=== PATIENT | female | born 1955 | race Caucasian/White ===

== ENCOUNTER 2024-04-23 08:02 | Inpatient (IN) | payer MEDICARE, OTHER ==
[2024-04-23] VITALS (7 sets, daily range): BP systolic 112–135; BP diastolic 59–69; PULSE 72–94; RESP 12–92; TEMP 97.7–98; O2SAT 15–95
[~2024-04-23] VITALS: Ht 165.1 cm; Wt 92.3 kg
[2024-04-23] MEDS: MAGNESIUM SULFATE 1GM/100ML 100 ML IV ONE ×2 (08:30→16:34)
--- NOTE | 2024-04-23 09:17 | DVH ---
CHEST RADIOGRAPH Indication:sob Technique: Single frontal view of the chest was obtained COMPARISON: None FINDINGS: Lines and Tubes: Left chest wall pacemaker Lungs: Congestion Pleura: No effusion. No pneumothorax. Cardiomediastinal contours: Unremarkable Bones: Unremarkable IMPRESSION: Congestion, mild
--- NOTE | 2024-04-23 09:30 | ED.PDOC ---
SOB-HPI HPI Comments 69-year-old female with a history of CHF, asthma, pacemaker sent here today from nearby nursing facility with complaint degree of breath, wheezing, productive cough that worsened in the last two days. Patient received three doses of her nebulizer treatments overnight and a dose of Lasix just prior to medic arrival to the nursing facility. Patient denies any chest pain at any time. No fevers. Patient was requesting steroids and breathing treatments. No other complaints. 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 Family History Family History: Reviewed,noncontributory to illness, Unknown Social History Smoker: Non-Smoker Alcohol: Denies ETOH Use Drugs: Denies Drug Use Lives In: [facility] Respiratory: reports: cough, SOB at rest Physical Exam General Appearance: No Apparent Distress, Normal HEENT: Normal ENT Inspection, Pharynx Normal, TMs Normal Neck: Full Range of Motion, Non-Tender, Normal, Normal Inspection Respiratory: Chest Non-Tender, Other (Mild respiratory distress, inspiratory and expiratory wheezing, scattered rhonchi, productive cough during exam) Cardiovascular: No Edema, No Murmur, No Gallop, Normal Peripheral Pulses, Tachycardia (110s heart rate) Breast Exam: Deferred Gastrointestinal: No Organomegaly, Non Tender, No Pulsatile Mass, Normal Bowel Sounds, Soft Genitalia: Deferred Pelvic: Deferred Rectal: Deferred Extremities: No calf tenderness, Normal capillary refill, Normal inspection, Normal range of motion, Non-tender, Pedal edema (1+ bilaterally) Musculoskeletal : Apperance: Normal Neurologic: Alert, 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 Was a procedure done? Was a procedure done?: No Differential Dx Differential Diagnosis: Asthma, Bronchitis, CHF, COPD, Pneumonia, Pneumothorax, Pulmonary Embolism, URI X-Ray, Labs, Meds, VS Vital Signs Date Time Temp Pulse Resp B/P (MAP) Pulse Ox O2 Delivery O2 Flow Rate FiO2 04/23/24 15:27 18 91 Nasal Cannula* 4 36 04/23/24 15:27 91 Nasal Cannula* 4 36 04/23/24 12:00 81 16 102/70 (81) 04/23/24 10:34 87 16 143/81 (101) 92 04/23/24 10:17 69 04/23/24 10:03 94 Nasal Cannula* 4 36 04/23/24 10:03 16 94 Nasal Cannula* 4 36 04/23/24 08:39 72 22 95 Nasal Cannula* 4 36 04/23/24 08:38 72 22 130/70 (90) 95 04/23/24 08:12 98.4 80 22 122/74 (90) 97 98.4 04/23/24 08:12 69 04/23/24 08:12 98.4 80 22 122/74 (90) 97 Lab Test 04/23/24 09:28 Range/Units White Blood Count 6.0 4.4-10.8 10^3/uL Red Blood Count 4.63 4.0-5.20 10^6/uL Hemoglobin 13.8 12.2-16.2 g/dL Hematocrit 42.1 36.0-46.0 % Mean Corpuscular Volume 91.1 80.0-100.0 fL Mean Corpuscular Hemoglobin 29.9 28.0-32.0 pg Mean Corpuscular Hemoglobin Concent 32.9 32.0-36.0 g/dL Red Cell Distribution Width 13.0 11.8-14.3 % Platelet Count 81 L 140-450 10^3/uL Mean Platelet Volume 9.6 6.9-10.8 fL Neutrophils (%) (Auto) 60.5 37.0-80.0 % Lymphocytes (%) (Auto) 20.2 10.0-50.0 % Monocytes (%) (Auto) 7.3 0.0-12.0 % Eosinophils (%) (Auto) 11.0 H 0.0-7.0 % Basophils (%) (Auto) 1.0 0.0-2.0 % Neutrophils # (Auto) 3.6 1.6-8.6 10 ^3/uL Lymphocytes # (Auto) 1.2 0.4-5.4 10 ^3/uL Monocytes # (Auto) 0.4 0-1.3 10 ^3/uL Eosinophils # (Auto) 0.7 0-0.8 10 ^3/uL Basophils # (Auto) 0.1 0-0.2 10 ^3/uL Nucleated Red Blood Cells 0.1 % Sodium Level 141 136-145 mmol/L Potassium Level 3.9 3.5-5.1 mmol/L Chloride Level 104 98-107 mmol/L Carbon Dioxide Level 31 20-31 mmol/L Anion Gap 6 5-15 Blood Urea Nitrogen 16 9-23 mg/dL Creatinine 0.98 0.550-1.02 mg/dL Glomerular Filtration Rate Calc 62 >90 mL/min BUN/Creatinine Ratio 16.3 10.0-20.0 Serum Glucose 97 74-106 mg/dL Calcium Level 10.1 8.7-10.4 mg/dL Total Bilirubin 0.6 0.2-1.0 mg/dL Aspartate Amino Transferase (AST) 15 13-40 U/L Alanine Aminotransferase (ALT) < 9 7-40 U/L Alkaline Phosphatase 76 46-116 U/L B-Type Natriuretic Peptide 25.61 0-100 pg/mL Total Protein 7.3 5.7-8.2 g/dL Albumin 4.5 3.2-4.8 g/dL Current Medications Medications (Trade) Dose Ordered Sig/Becca Route Start Time Stop Time Status Last Admin Methylprednisolone Sodium Succinate (Solu Medrol) 125 mg ONCE ONCE IV 04/23/24 08:30 04/23/24 08:41 DC 04/23/24 09:48 Ipratropium [place] (Atrovent Medneb) 1 mg ONCE ONCE N 04/23/24 08:30 04/23/24 08:41 DC 04/23/24 10:03 Albuterol (Ventolin Medneb) 20 mg ONCE ONCE N 04/23/24 08:30 04/23/24 08:41 DC 04/23/24 10:03 Albuterol (Ventolin Medneb) 20 mg ONCE ONCE [facility] 04/23/24 15:00 04/23/24 15:01 DC 04/23/24 15:27 Chest x-ray with evidence of pulmonary vascular congestion, no focal consolidation or infiltrate, no pneumothorax, this is my interpretation. FINDINGS: Lines and Tubes: Left chest wall pacemaker Lungs: Congestion Pleura: No effusion. No pneumothorax. Cardiomediastinal contours: Unremarkable Bones: Unremarkable IMPRESSION: Congestion, mild X-Ray, Labs, Meds, VS Comment 69-year-old female presented today with a presentation consistent with asthma exacerbation with components of volume overload likely secondary to CHF history. Patient was given duo neb treatments and steroids and magnesium with limited improvement in her symptoms. Patient was not given Lasix as she just received a dose from her nursing facility just prior to arrival to the ER. Labs overall reassuring without evidence of significant electrolyte abnormalities, renal dysfunction, nor leukocytosis suggest an infection. BNP normal. Chest x-ray with evidence of pulmonary vascular congestion but no evidence of pneumonia or pneumothorax. Patient to be admitted for further asthma exacerbation management and diuresis. Patient is in agreement with the plan. Time of 1ST Reevaluation: 10:02 Reevaluation 1ST: mild improve, still sob Patient Education/Counseling: Diagnosis, Treatment Family Education/Counseling: No Family Present Departure 1 Departure Time of Disposition: 15:56 Impression: Primary Impression: Asthma exacerbation Additional Impressions: CHF exacerbation History of asthma History of CHF (congestive heart failure) Pacemaker Disposition: ADMITTED INPATIENT Admit to: [facility] Condition: Stable Critical Care Note Critical Care Time?: Yes (35 min-critical care time only) Stability Stability form required: No Heart Score Heart Score: Heart Score Response (Comments) Value History N/A 0 EKG N/A 0 Age N/A 0 Risk Factors N/A 0 Troponin N/A 0 Total 0 JORDON WOODWARD MD Apr 23, 2024 09:30
[2024-04-23 09:45] LABS: Basophils # (auto) 0.1 10 ^3/uL (0-0.2); Eosinophils # (auto) 0.7 10 ^3/uL (0-0.8); Hematocrit 42.1 % (36.0-46.0); Hemoglobin 13.8 g/dL (12.2-16.2); Lymphocytes # (auto) 1.2 10 ^3/uL (0.4-5.4); Lymphocytes % (auto) 20.2 % (10.0-50.0); Mean Corpuscular Hemoglobin 29.9 pg (28.0-32.0); Mean Corpuscular Hgb Conc. 32.9 g/dL (32.0-36.0); Mean Corpuscular Volume 91.1 fL (80.0-100.0); Monocytes # (auto) 0.4 10 ^3/uL (0-1.3); Monocytes % (auto) 7.3 % (0.0-12.0); Neutrophils # (auto) 3.6 10 ^3/uL (1.6-8.6); Neutrophils % (auto) 60.5 % (37.0-80.0); Nucleated Red Blood Cells % 0.1 %; Platelet Count (auto) 81 10^3/uL (140-450); Red Blood Cells 4.63 10^6/uL (4.0-5.20)
[2024-04-23] MEDS: methylPREDNISolone SOD SUCC 125 MG/2 ML VL IV ONE (09:48)
[2024-04-23] MEDS: ALBUTEROL SULF 2.5 MG/0.5ML(0.5%) NEB SOLN HHN ONE ×2 (10:03→15:27)
[2024-04-23] MEDS: IPRATROPIUM BROM 0.5 MG/2.5ML INH SOL HHN ONE (10:03)
[2024-04-23 10:14] LABS: Albumin 4.5 g/dL (3.2-4.8); Alkaline Phosphatase 76 U/L (46-116); Anion Gap 6 (5-15); Aspartate Aminotransferase 15 U/L (13-40); BUN/Creatinine Ratio 16.3 (10.0-20.0); Bilirubin, Total 0.6 mg/dL (0.2-1.0); Blood Urea Nitrogen 16 mg/dL (9-23); Calcium 10.1 mg/dL (8.7-10.4); Carbon Dioxide 31 mmol/L (20-31); Chloride 104 mmol/L (98-107); Glucose 97 mg/dL (74-106); Potassium 3.9 mmol/L (3.5-5.1); Sodium 141 mmol/L (136-145); Total Protein 7.3 g/dL (5.7-8.2)
[2024-04-23 10:16] LABS: Alanine Aminotransferase < 9 U/L (7-40)
[2024-04-23] MEDS ORDERED: HYDR25TA5 PO (15:38)
[2024-04-23] MEDS ORDERED: HYDR25TA87 PO (15:38)
[2024-04-23] MEDS ORDERED: QUET1TAB11 PO (15:38)
[2024-04-23] MEDS ORDERED: MONT-8 PO (15:38)
[2024-04-23] MEDS ORDERED: HYDROcodone-ACET 5/325MG TAB PO PRN (15:45)
[2024-04-23] MEDS ORDERED: ONDANSETRON HCL 4 MG/2 ML VIAL IV PRN (15:45)
[2024-04-23] MEDS ORDERED: DOCUSATE SOD 100 MG CAP PO PRN (15:45)
--- NOTE | 2024-04-23 15:48 | DVHHP2 ---
History of Present Illness Reason for Visit: Shortness of breath History of Present Illness Maryann Melgar is a 69-year-old female with past medical history of asthma, CHF, hypertension, and recent pacemaker, who comes in with complaints of shortness of breath. Patient states that this morning it was becoming increasingly difficulty for her to breath, to the point that she was gasping, causing her to come to the hospital. She states she uses home oxygen at 3L/min. She is currently on 4L/min with O2 sats 88-91%, with audible wheezing and tripoding. Cardiovascular: CHF, HTN, Other (Pacemaker) Pulmonary: Asthma (on home oxygen 3L) Past Surgical History: Appendectomy, (x 1) Family History: None Smoke: Quit (2 days ago) ALCOHOL: none Drugs: None Lives: [facility] Domestic Violence: Neg Review of Systems Constitutional: No: Fever, Chills, Sweats, Weakness, Malaise, Other Eyes: No: Pain, Vision change, Conjunctivae inflammation, Eyelid inflammation, Other, Redness ENT: No: Ear pain, Ear discharge, Nose pain, Nose discharge, Nose congestion, Mouth pain, Mouth swelling, Throat pain, Throat swelling, Other Respiratory: Cough, Shortness of breath, SOB with excertion, Wheezing; No: Dry, Hemoptysis, Pleuritic Pain, Sputum, Wheezing, Other Cardiovascular: No: Chest Pain, Palpitations, Orthopnea, Paroxysmal Noc. Dyspnea, Edema, Lt Headedness, Other Gastrointestinal: No: Nausea, Vomiting, Abdominal Pain, Diarrhea, Constipation, Melena, Hematochezia, Other Genitourinary: No Dysuria, No Frequency, No Incontinence, No Hematuria, No Retention, No Other Musculoskeletal: No: other, neck pain, shoulder pain, arm pain, back pain, hand pain, leg pain, foot pain Skin: No: Rash, Lesions, Jaundice, Bruising, Other Neurological: No: Weakness, Numbness, Incoordination, Change in speech, Confusion, Seizures, Other Allergies: Coded Allergies: NO KNOWN ALLERGIES (Unverified , 04/23/24) Exam Vital Signs Vital Signs Date Time Temp Pulse Resp B/P (MAP) Pulse Ox O2 Delivery O2 Flow Rate FiO2 04/23/24 15:27 18 91 Nasal Cannula* 4 36 04/23/24 12:00 81 102/70 (81) 04/23/24 08:12 98.4 98.4 General Appearance: Alert, Oriented X3, moderate distress HEENT: Atraumatic, PERRLA, Mucous membr. moist/pink Respiratory: Other (Bilateral wheezing) Cardiovascular: Regular rate, Normal S1, Normal S2 Abdominal: Normal bowel sounds Extremities: No clubbing, No cyanosis, No edema Skin: No rashes, No breakdown, No significant lesion Neuro: Normal gait, Normal speech, Strength at 5/5 X4 ext Psych/Mental Status: Mental status NL, Mood NL Labs/Xrays Labs Test 04/23/24 09:28 Range/Units White Blood Count 6.0 4.4-10.8 10^3/uL Red Blood Count 4.63 4.0-5.20 10^6/uL Hemoglobin 13.8 12.2-16.2 g/dL Hematocrit 42.1 36.0-46.0 % Mean Corpuscular Volume 91.1 80.0-100.0 fL Mean Corpuscular Hemoglobin 29.9 28.0-32.0 pg Mean Corpuscular Hemoglobin Concent 32.9 32.0-36.0 g/dL Red Cell Distribution Width 13.0 11.8-14.3 % Platelet Count 81 L 140-450 10^3/uL Mean Platelet Volume 9.6 6.9-10.8 fL Neutrophils (%) (Auto) 60.5 37.0-80.0 % Lymphocytes (%) (Auto) 20.2 10.0-50.0 % Monocytes (%) (Auto) 7.3 0.0-12.0 % Eosinophils (%) (Auto) 11.0 H 0.0-7.0 % Basophils (%) (Auto) 1.0 0.0-2.0 % Neutrophils # (Auto) 3.6 1.6-8.6 10 ^3/uL Lymphocytes # (Auto) 1.2 0.4-5.4 10 ^3/uL Monocytes # (Auto) 0.4 0-1.3 10 ^3/uL Eosinophils # (Auto) 0.7 0-0.8 10 ^3/uL Basophils # (Auto) 0.1 0-0.2 10 ^3/uL Nucleated Red Blood Cells 0.1 % Sodium Level 141 136-145 mmol/L Potassium Level 3.9 3.5-5.1 mmol/L Chloride Level 104 98-107 mmol/L Carbon Dioxide Level 31 20-31 mmol/L Anion Gap 6 5-15 Blood Urea Nitrogen 16 9-23 mg/dL Creatinine 0.98 0.550-1.02 mg/dL Glomerular Filtration Rate Calc 62 >90 mL/min BUN/Creatinine Ratio 16.3 10.0-20.0 Serum Glucose 97 74-106 mg/dL Calcium Level 10.1 8.7-10.4 mg/dL Total Bilirubin 0.6 0.2-1.0 mg/dL Aspartate Amino Transferase (AST) 15 13-40 U/L Alanine Aminotransferase (ALT) < 9 7-40 U/L Alkaline Phosphatase 76 46-116 U/L B-Type Natriuretic Peptide 25.61 0-100 pg/mL Total Protein 7.3 5.7-8.2 g/dL Albumin 4.5 3.2-4.8 g/dL CHEST RADIOGRAPH FINDINGS: Lines and Tubes: Left chest wall pacemaker Lungs: Congestion Pleura: No effusion. No pneumothorax. Cardiomediastinal contours: Unremarkable Bones: Unremarkable IMPRESSION: Congestion, mild Assessment/Plan Assessment/Plan Assessment: CHF exacerbation, Asthma exacerbation, Hypertension, Thrombocytopenia, Plan: Admit to Med-Surg, Breathing treatments, IV steroids, Supplemental oxygen, Home medications reconciled, Plan discussed with: Patient My Orders Orders - RADHA SABA DIRECTOR ATHLETIC Procedure Category Date Status Time Urinalysis LAB 04/23/24 Logged 15:26 Magnesium Sulfate PHA 04/23/24 Logged 1gm/100ml 15:45 Admit ADMIT 04/23/24 Transmitted 15:32 Code Status CODE 04/23/24 Transmitted 15:32 2 Gm Sodium Diet DIET 04/23/24 Transmitted Dinner Sodium Chloride Lock PHA 04/23/24 Transmitted (Saline Lock Ns) 22:00 Hydrocodone-Acet PHA 04/23/24 Transmitted 5/325mg Tab (Ivins 15:45 Ondansetron Hcl PHA 04/23/24 Transmitted (Zofran) 15:45 Docusate Sodium PHA 04/23/24 Transmitted Capsule (Colace 15:45 Complete Blood Count LAB 04/24/24 Verified 04:00 Comprehensive LAB 04/24/24 Verified Metabolic Panel 04:00 Condition: Serious LOULOU 04/23/24 Transmitted 15:32 Acetaminophen Tablet PHA 04/23/24 Transmitted (Tylenol Tablet) 15:45 Methylprednisolone PHA 04/23/24 Transmitted Sod Succ (Solu Medrol 22:00 Ipratropium Medneb PHA 04/23/24 Transmitted (Atrovent Medneb) 15:45 Albuterol Medneb PHA 04/23/24 Transmitted (Ventolin Medneb) 15:45 Hydrochlorothiazide PHA 04/24/24 Verified Tablet (Hydrochlorot 10:00 Hydralazine Hcl PHA 04/24/24 Verified Tablet (Apresoline 10:00 Montelukast Tablet PHA 04/24/24 Verified (Singulair Tablet) 10:00 Quetiapine Fumarate PHA 04/23/24 Verified Tablet (Seroquel Tab 22:00 Date of Service: Apr 23, 2024 Billing Provider: RADHA SABA Common Visit Codes: [id number] INP/OBS CARE (MOD) RADHA SABA Apr 23, 2024 15:48
[2024-04-23 17:33] LABS: Urine Bacteria None Seen /hpf (None Seen)
[2024-04-23 17:47] LABS: Urine Blood TRACE /uL (Negative); Urine Clarity Clear (Clear); Urine Color Colorless (Yellow); Urine Hyaline Cast FEW /lpf (0 - 2); Urine Protein, UAD Negative (Negative); Urine Urobilinogen Normal (Negative); Urine WBC <1 /hpf (0 - 5)
[2024-04-23] MEDS: ALBUTEROL SULF 2.5 MG/0.5ML(0.5%) NEB SOLN NEB PRN (18:59)
[2024-04-23] MEDS: IPRATROPIUM BROM 0.5 MG/2.5ML INH SOL NEB PRN (19:00)
[2024-04-23] MEDS: guaiFENesin-DM 100/10mg/5ml SYR PO PRN (19:51)
[2024-04-23] MEDS: HYDROcodone-ACET 10/325MG TAB PO PRN (20:06)
[2024-04-23] MEDS ORDERED: SERT25TA28 PO (20:56)
[2024-04-23] MEDS ORDERED: ALPR0.25 PO (20:56)
--- NOTE | 2024-04-23 21:06 | ECG ---
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
[2024-04-23] MEDS: SODIUM CHLOR 0.9% PF (SALINE LOCK) 10ML VIAL/SYR IV SCH (21:45)
[2024-04-23] MEDS: QUEtiapine FUMARATE 25 MG TAB PO SCH (21:45)
[2024-04-23] MEDS: methylPREDNISolone SOD SUCC 40 MG/ML VL IV SCH (21:45)
[2024-04-23] MEDS: ACETAMINOPHEN 325 MG TAB PO PRN (21:45)
[2024-04-24] VITALS (20 sets, daily range): BP systolic 123–158; BP diastolic 65–77; PULSE 65–90; RESP 16–22; TEMP 97.4–98.2; O2SAT 90–98
[2024-04-24] MEDS: IPRATROPIUM BROM 0.5 MG/2.5ML INH SOL NEB SCH ×2 (07:25→18:07)
[2024-04-24] MEDS: ALBUTEROL SULF 2.5 MG/0.5ML(0.5%) NEB SOLN NEB SCH ×2 (07:26→18:07)
[2024-04-24] MEDS: hydrALAZINE HCL 25 MG TAB PO SCH (09:47)
[2024-04-24] MEDS: MONTELUKAST SODIUM 10 MG TAB PO SCH (09:47)
[2024-04-24] MEDS: hydroCHLOROthiazide 25 MG TAB PO SCH (09:47)
[2024-04-24 10:13] LABS: Basophils # (auto) 0 10 ^3/uL (0-0.2); Basophils % (auto) 0.1 % (0.0-2.0); Eosinophils # (auto) 0 10 ^3/uL (0-0.8); Eosinophils % (auto) 0.1 % (0.0-7.0); Hematocrit 39.3 % (36.0-46.0); Hemoglobin 13.1 g/dL (12.2-16.2); Lymphocytes # (auto) 0.5 10 ^3/uL (0.4-5.4); Lymphocytes % (auto) 3.9 % (10.0-50.0); Mean Corpuscular Hemoglobin 29.7 pg (28.0-32.0); Mean Corpuscular Hgb Conc. 33.3 g/dL (32.0-36.0); Mean Corpuscular Volume 89.1 fL (80.0-100.0); Monocytes # (auto) 0.6 10 ^3/uL (0-1.3); Monocytes % (auto) 4.7 % (0.0-12.0); Neutrophils # (auto) 11.6 10 ^3/uL (1.6-8.6); Neutrophils % (auto) 91.2 % (37.0-80.0); Platelet Count (auto) 91 10^3/uL (140-450); Red Blood Cells 4.41 10^6/uL (4.0-5.20); Red Cell Distribution Width 12.6 % (11.8-14.3); White Blood Cell 12.7 10^3/uL (4.4-10.8)
[2024-04-24 10:31] LABS: Albumin 4.7 g/dL (3.2-4.8); Alkaline Phosphatase 73 U/L (46-116); Anion Gap 7 (5-15); Aspartate Aminotransferase 12 U/L (13-40); BUN/Creatinine Ratio 23.4 (10.0-20.0); Bilirubin, Total 0.6 mg/dL (0.2-1.0); Blood Urea Nitrogen 22 mg/dL (9-23); Calcium 10.6 mg/dL (8.7-10.4); Carbon Dioxide 31 mmol/L (20-31); Chloride 100 mmol/L (98-107); Glucose 144 mg/dL (74-106); Potassium 3.5 mmol/L (3.5-5.1); Sodium 138 mmol/L (136-145); Total Protein 7.5 g/dL (5.7-8.2)
[2024-04-24 10:36] LABS: Alanine Aminotransferase < 9 U/L (7-40)
--- NOTE | 2024-04-24 13:21 | DVHPN2 ---
Reviewed: Care Plan, H&P, Labs, Medications, Previous Orders, Radiology Changes from previous H/P or p: No Changes Eyes: No Pain, No Vision change, No Conjunctivae inflammation, No Eyelid inflammation, No Other, No Redness ENT: No Ear pain, No Ear discharge, No Nose pain, No Nose discharge, No Nose congestion, No Mouth pain, No Mouth swelling, No Throat pain, No Throat swelling, No Other Cardiovascular: No Chest Pain, No Palpitations, No Orthopnea, No Paroxysmal Noc. Dyspnea, No Edema, No Lt Headedness, No Other Respiratory: Cough; No Dry; Shortness of breath, SOB with excertion, Wheezing; No Hemoptysis, No Pleuritic Pain, No Sputum, No Other Gastrointestinal: No Nausea, No Vomiting, No Abdominal Pain, No Diarrhea, No Constipation, No Melena, No Hematochezia, No Other Genitourinary: No Dysuria, No Frequency, No Incontinence, No Hematuria, No Retention, No Other Musculoskeletal: No other, No neck pain, No shoulder pain, No arm pain, No back pain, No hand pain, No leg pain, No foot pain Skin: No Rash, No Lesions, No Jaundice, No Bruising, No Other Objective Vitals Vital Signs Date Time Temp Pulse Resp B/P (MAP) Pulse Ox O2 Delivery O2 Flow Rate FiO2 04/24/24 11:48 78 16 96 04/24/24 11:38 Nasal Cannula 3.0 04/24/24 11:38 28 04/24/24 09:47 136/69 04/24/24 08:47 98.1 98.1 Intake/Output Intake and Output 04/24/24 07:00 Intake Total 500 ml Balance 500 ml Intake Oral 400 ml IV Total 100 ml Medications Current Medications Medications Dose Ordered Sig/Becca Route Start Time Stop Time Status Last Admin Dose Admin Sodium Chloride 10 ml Q8HR IV 04/23/24 22:00 04/24/24 05:03 10 ML Acetaminophen/ Hydrocodone Bitart 1 tab Q4HP PRN PO 04/23/24 15:45 Cancel Ondansetron HCl 4 mg Q4HP PRN IV 04/23/24 15:45 Docusate Sodium 100 mg BIDPRN PRN PO 04/23/24 15:45 Acetaminophen 650 mg Q6HP PRN PO 04/23/24 15:45 04/23/24 21:45 650 MG Methylprednisolone Sodium Succinate 40 mg BID IV 04/23/24 22:00 04/24/24 09:46 40 MG Ipratropium [place] 0.5 mg Q4HPRN PRN NEB 04/23/24 15:45 04/24/24 04:11 0.5 MG Albuterol 2.5 mg Q4HPRN PRN NEB 04/23/24 15:45 04/24/24 04:11 2.5 MG Hydrochlorothiazide 25 mg DAILY PO 04/24/24 10:00 04/24/24 09:47 25 MG Hydralazine HCl 25 mg DAILY PO 04/24/24 10:00 04/24/24 09:47 25 MG Montelukast Sodium 10 mg DAILY PO 04/24/24 10:00 04/24/24 09:47 10 MG Quetiapine Fumarate 25 mg HS PO 04/23/24 22:00 04/23/24 21:45 25 MG Guaifenesin/ Dextromethorphan 10 ml Q4HP PRN PO 04/23/24 19:15 04/23/24 20:05 10 ML Acetaminophen/ Hydrocodone Bitart 1 tab Q6HP PRN PO 04/23/24 19:15 04/24/24 04:19 1 TAB Albuterol 2.5 mg Q6HR NEB 04/24/24 06:00 04/24/24 11:38 2.5 MG Ipratropium [place] 0.5 mg Q6HR NEB 04/24/24 06:00 04/24/24 11:38 0.5 MG Laboratory Results Laboratory Tests 04/24/24 09:51 Chemistry Test 04/24/24 09:51 Albumin 4.7 g/dL (3.2-4.8) Calcium Level 10.6 mg/dL (8.7-10.4) H Total Protein 7.5 g/dL (5.7-8.2) LFT Test 04/24/24 09:51 Alanine Aminotransferase (ALT) < 9 U/L (7-40) Alkaline Phosphatase 73 U/L (46-116) Aspartate Amino Transferase (AST) 12 U/L (13-40) L Total Bilirubin 0.6 mg/dL (0.2-1.0) Urinalysis Test 04/23/24 17:00 Urine Color Colorless (Yellow) Urine Clarity Clear (Clear) Urine pH 5.0 (5.0-9.0) Urine Specific [place] 1.010 (1.001-1.035) Urine Protein Negative (Negative) Urine Ketones Negative (Negative) Urine Blood Trace /uL (Negative) H Urine Nitrite Negative (Negative) Urine Bilirubin Negative (Negative) Urine Urobilinogen Normal mg/dL (Negative) Urine Leukocyte Esterase Negative /uL (Negative) Urine RBC 1 /hpf (0 - 4) Urine WBC <1 /hpf (0 - 5) Urine Squamous Epithelial Cells Few /hpf (<5) Urine Bacteria None seen /hpf (None Seen) Urine Hyaline Casts Few /lpf (0 - 2) Urine Glucose Normal mg/dL (Normal) Labs and/or images reviewed: Labs reviewed by me, Image(s) reviewed by me Assessment/Plan Assessment/Plan Acute on chronic hypoxic respiratory failure: Oxygen by nasal cannula Use of home oxygen 4 L per minute Acute asthma exacerbation Acute on chronic CHF exacerbation Hypertension History of pacemaker seven weeks ago at [place] for symptomatic bradycardia [facility] Time spent 55 minutes Patient is full code Time spent advanced care planning 20 minutes Plan discussed with: Patient Date of Service: Apr 24, 2024 Billing Provider: FATOUMATA DELGADO MD Common Visit Codes: [id number] INP/OBS CARE(HIGH) Secondary Visit Codes: [id number] CARE PLAN 30 MINUTES FATOUMATA DELGADO MD Apr 24, 2024 13:21
[2024-04-24] MEDS: ALPRAZolam 0.5 MG TAB PO SCH (14:23)
[2024-04-25] VITALS (13 sets, daily range): BP systolic 122–140; BP diastolic 67–83; PULSE 63–91; RESP 14–20; TEMP 36.4; O2SAT 19–99
[2024-04-25] MEDS ORDERED: METH4PAK PO (09:25)
--- NOTE | 2024-04-25 09:26 | DVHPN2 ---
Reviewed: Care Plan, H&P, Labs, Medications, Previous Orders, Radiology Changes from previous H/P or p: No Changes Eyes: No Pain, No Vision change, No Conjunctivae inflammation, No Eyelid inflammation, No Other, No Redness ENT: No Ear pain, No Ear discharge, No Nose pain, No Nose discharge, No Nose congestion, No Mouth pain, No Mouth swelling, No Throat pain, No Throat swelling, No Other Cardiovascular: No Chest Pain, No Palpitations, No Orthopnea, No Paroxysmal Noc. Dyspnea, No Edema, No Lt Headedness, No Other Respiratory: Cough; No Dry; Shortness of breath, SOB with excertion, Wheezing; No Hemoptysis, No Pleuritic Pain, No Sputum, No Other Gastrointestinal: No Nausea, No Vomiting, No Abdominal Pain, No Diarrhea, No Constipation, No Melena, No Hematochezia, No Other Genitourinary: No Dysuria, No Frequency, No Incontinence, No Hematuria, No Retention, No Other Musculoskeletal: No other, No neck pain, No shoulder pain, No arm pain, No back pain, No hand pain, No leg pain, No foot pain Skin: No Rash, No Lesions, No Jaundice, No Bruising, No Other Objective Vitals Vital Signs Date Time Temp Pulse Resp B/P (MAP) Pulse Ox O2 Delivery O2 Flow Rate FiO2 04/25/24 09:04 122/67 04/25/24 08:38 97.6 66 14 99 97.6 04/25/24 07:28 Nasal Cannula* 3 32 Intake/Output Intake and Output 04/25/24 07:00 Intake Total 590 ml Output Total 500 ml Balance 90 ml Intake Oral 590 ml Output Urine Total 500 ml # Voids 3 # Bowel Movements 1 Medications Current Medications Medications Dose Ordered Sig/Becca Route Start Time Stop Time Status Last Admin Dose Admin Sodium Chloride 10 ml Q8HR IV 04/23/24 22:00 04/25/24 05:17 10 ML Acetaminophen/ Hydrocodone Bitart 1 tab Q4HP PRN PO 04/23/24 15:45 Cancel Ondansetron HCl 4 mg Q4HP PRN IV 04/23/24 15:45 Docusate Sodium 100 mg BIDPRN PRN PO 04/23/24 15:45 Acetaminophen 650 mg Q6HP PRN PO 04/23/24 15:45 04/23/24 21:45 650 MG Methylprednisolone Sodium Succinate 40 mg BID IV 04/23/24 22:00 04/25/24 09:02 40 MG Hydrochlorothiazide 25 mg DAILY PO 04/24/24 10:00 04/25/24 09:03 25 MG Hydralazine HCl 25 mg DAILY PO 04/24/24 10:00 04/25/24 09:04 25 MG Montelukast Sodium 10 mg DAILY PO 04/24/24 10:00 04/25/24 09:03 10 MG Quetiapine Fumarate 25 mg HS PO 04/23/24 22:00 04/24/24 22:02 25 MG Guaifenesin/ Dextromethorphan 10 ml Q4HP PRN PO 04/23/24 19:15 04/25/24 09:03 10 ML Acetaminophen/ Hydrocodone Bitart 1 tab Q6HP PRN PO 04/23/24 19:15 04/25/24 09:14 1 TAB Alprazolam 1 mg TID PO 04/24/24 14:00 04/25/24 05:17 1 MG Albuterol 2.5 mg Q4HR NEB 04/24/24 18:00 04/25/24 07:28 2.5 MG Ipratropium [place] 0.5 mg Q4HR NEB 04/24/24 18:00 04/25/24 07:28 0.5 MG Laboratory Results Laboratory Tests 04/24/24 09:51 Chemistry Test 04/24/24 09:51 Albumin 4.7 g/dL (3.2-4.8) Calcium Level 10.6 mg/dL (8.7-10.4) H Total Protein 7.5 g/dL (5.7-8.2) Coagulation Test 04/24/24 14:17 D-Dimer, Quantitative 1.19 mg/L FEU (0.0-0.49) H LFT Test 04/24/24 09:51 Alanine Aminotransferase (ALT) < 9 U/L (7-40) Alkaline Phosphatase 73 U/L (46-116) Aspartate Amino Transferase (AST) 12 U/L (13-40) L Total Bilirubin 0.6 mg/dL (0.2-1.0) Urinalysis Test 04/23/24 17:00 Urine Color Colorless (Yellow) Urine Clarity Clear (Clear) Urine pH 5.0 (5.0-9.0) Urine Specific [place] 1.010 (1.001-1.035) Urine Protein Negative (Negative) Urine Ketones Negative (Negative) Urine Blood Trace /uL (Negative) H Urine Nitrite Negative (Negative) Urine Bilirubin Negative (Negative) Urine Urobilinogen Normal mg/dL (Negative) Urine Leukocyte Esterase Negative /uL (Negative) Urine RBC 1 /hpf (0 - 4) Urine WBC <1 /hpf (0 - 5) Urine Squamous Epithelial Cells Few /hpf (<5) Urine Bacteria None seen /hpf (None Seen) Urine Hyaline Casts Few /lpf (0 - 2) Urine Glucose Normal mg/dL (Normal) Labs and/or images reviewed: Labs reviewed by me, Image(s) reviewed by me Assessment/Plan Assessment/Plan Acute on chronic hypoxic respiratory failure: Oxygen by nasal cannula Use of home oxygen 4 L per minute Acute asthma exacerbation Acute on chronic CHF exacerbation Hypertension History of pacemaker seven weeks ago at [place] for symptomatic bradycardia [facility] Time spent 55 minutes Patient is full code Time spent advanced care planning 20 minutes Plan discussed with: Patient My Orders Orders - FATOUMATA DELGADO MD Procedure Category Date Status Time Alprazolam Tablet PHA 04/24/24 In Process (Xanax Tablet) 14:00 Albuterol Medneb PHA 04/24/24 In Process (Ventolin Medneb) 18:00 Ipratropium Medneb PHA 04/24/24 In Process (Atrovent Medneb) 18:00 Date of Service: Apr 25, 2024 Billing Provider: FATOUMATA DELGADO MD Common Visit Codes: [id number] INP/OBS CARE(HIGH) FATOUMATA DELGADO MD Apr 25, 2024 09:26
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
== END 2024-04-25 11:32 | disposition home or self-care (01) | DRG 291 ==
LOC: EDBD 08:02 → ER 08:15 → OVERFLOW 15:32 → CENTRAL 15:38
PROVIDERS: ADMIT Nurse Practitioner Family; ATTEND Family Medicine
DX: I11.0 Hypertensive heart disease with heart failure (principal); I50.33 Acute on chronic diastolic (congestive) heart failure; J96.21 Acute and chronic respiratory failure with hypoxia; J45.901 Unspecified asthma with (acute) exacerbation; D69.6 Thrombocytopenia, unspecified; Z95.0 Presence of cardiac pacemaker; Z79.899 Other long term (current) drug therapy
CPT/HCPCS: 36415; 71045; 80053; 81001; 83880; 85025; 85379; 93005; 94640; 94644; 94645; 96374; 99291; G0378

== ENCOUNTER 2025-05-14 18:59 | Inpatient (IN) | payer MEDICARE, OTHER ==
[~2025-05-14] VITALS: Ht 162.6 cm; Wt 60.0 kg
[~2025-05-14 18:59] MED LIST: ALPR0.25 PO; HYDR25TA5 PO; HYDR25TA87 PO; METH4PAK PO; MONT-8 PO; QUET1TAB11 PO; SERT25TA28 PO
--- NOTE | 2025-05-14 19:12 | ECG ---
[facility] Test Date: 2025-05-14 Test Time: 19:00:29 Pat Name: ANTONY SCALES Department: ED Room: 0283T Gender: F Toe Sewer: ALFRED : 1955 Requested By: GUICHO PARKER Order Number: [id number] Reading MD: Joao Lane Measurements Intervals [place] Rate: 70 P: 47 MA: 203 QRS: 29 QRSD: 86 T: 242 QT: 383 QTc: 414 Interpretive Statements Sinus rhythm Abnormal R-wave progression, early transition Repol abnrm suggests ischemia, anterolateral Electronically Signed On 05-19-2025 14:50:[address] Please click the below link to view image of tracing.
--- NOTE | 2025-05-14 20:11 | DVH ---
CHEST RADIOGRAPH Indication: SOB Technique: Single frontal view of the chest was obtained Comparison: XY CHEST PORTABLE on DOS: 04/23/24 FINDINGS: Lines and Tubes: None Lungs: No focal consolidation. Mild interstitial prominence. Pleura: No effusion. No pneumothorax. Cardiomediastinal contours: Unremarkable. Left-sided approach dual lead pacemaker terminating within right atrium and right ventricle. Bones: No acute osseous abnormality. IMPRESSION: Pulmonary vascular congestion.
--- NOTE | 2025-05-14 20:17 | ED.PDOC ---
Altered Mental Status HPI Comments 70-year-old female who came to ER via EMS for altered level of consciousness. Per EMS, patient picked up at [facility]. Was seen by caregivers laying on the ground of her room. Considering possible overdose of opiates. Was given 1 mg of Narcan while EN route to the ER. Patient does have history of dementia and no further information could be taken from her at this time with care Chief Complaint: ALOC Time Seen by MD: 20:16 Reviewed Notes: Nurses Notes Allergies: Coded Allergies: NO KNOWN ALLERGIES (Unverified , 04/23/24) Home Meds Active Scripts Methylprednisolone (Medrol Dosepak) 4 Mg Rosendo, 4 MG PO UD, #21 TAB UAD Prov:FATOUMATA DELGADO MD 04/25/24 Reported Medications Diphenhydramine HCl (Ruthann-Dryl) 12.5 Mg/5 Ml Liq, 12.5 MG PO, LIQ 05/15/25 Furosemide (Lasix) 20 Mg Tb, 1 TAB PO DAILY, #90 TAB 1 Refill 05/15/25 Escitalopram Oxalate (Lexapro) 5 Mg Tab, 1 TAB PO DAILY, #30 TAB 2 Refills 05/15/25 Hydrocodone-Acetaminophen (Hydrocodone Bitartrate/AC 10-325 mg) 1 Tab Tab, 1 TAB PO, TAB 05/15/25 Sertraline Hcl (Sertraline Hcl) 25 Mg Tab, 1 TAB PO DAILY, #30 TAB 2 Refills 04/23/24 Alprazolam (Xanax) 0.25 Mg Tb, 1 TAB PO DAILY, #30 TAB 04/23/24 Hydralazine HCl (Hydralazine HCl) 25 Mg Tab, 1 TAB PO DAILY 04/23/24 Quetiapine Fumerate (QUETIAPINE FUMARATE) 25 Mg Tab, 1 TAB PO HS 04/23/24 Montelukast Sodium (MONTELUKAST SODIUM) 10 Mg Tab, 1 TAB PO DAILY 04/23/24 Hctz (Hydrochlorothiazide) 25 Mg Tab, 1 TAB PO DAILY 04/23/24 Information Source: Emergency Med Personnel Mode of Arrival: EMS Severity: Unable to Care for Self Past Medical History PAST MEDICAL HISTORY: CHF, Dementia Surgical History: Unknown DIRECTOR OF GUIDANCE History: Unknown Family History Family History: Unknown Social History Smoker: Unknown Alcohol: Unknown Drugs: Unknown Lives In: Senior Living Unable to Obtain due to: Altered Mental Status, Dementia Physical Exam General Appearance: No Apparent Distress, Normal HEENT: Normal ENT Inspection, Pharynx Normal, TMs Normal Neck: Full Range of Motion, Non-Tender, Normal, Normal Inspection Respiratory: Chest Non-Tender, Lungs Clear, No Accessory Muscle Use, No Respiratory Distress, Normal Breath Sounds Cardiovascular: No Edema, No JVD, No Murmur, No Gallop, Normal Peripheral Pulses, Regular Rate/Rhythm Breast Exam: Deferred Gastrointestinal: No Organomegaly, Non Tender, No Pulsatile Mass, Normal Bowel Sounds, Soft Genitalia: Deferred Pelvic: Deferred Rectal: Deferred Extremities: No calf tenderness, Normal capillary refill, Normal inspection, Normal range of motion, Non-tender, No pedal edema Musculoskeletal : Apperance: Normal Neurologic: Alert, auditing control clerk II-XII nml as Tested, No Motor Deficits, Normal Affect, Normal Mood, No Sensory Deficits Cerebellar Function: Normal Reflexes: Normal Skin: Dry, Normal Color, Warm Lymphatic: No Adenopathy EKG EKG : Pulse Rate (adult): 70 Cardiac Rhythm: NSR Was a procedure done? Was a procedure done?: No Differential Diagnosis (ALOC) Differential Diagnosis: Dehydration, Hypoglycemia, Encephalopathy, Hypoxemia, Drug Overdose X-Ray, Labs, Meds, VS Vital Signs Date Time Temp Pulse Resp B/P (MAP) Pulse Ox O2 Delivery O2 Flow Rate FiO2 05/14/25 20:54 97.9 75 22 95/50 (65) 99 97.9 05/14/25 20:50 75 22 99 Nasal Cannula* 4 36 05/14/25 20:18 98.5 69 72 94/61 (72) 100 98.5 05/14/25 20:16 70 05/14/25 19:08 70 05/14/25 19:04 98.0 70 14 104/63 96 98.0 Lab Test 05/14/25 21:34 05/14/25 21:07 05/14/25 19:59 Range/Units White Blood Count 7.8 4.4-10.8 10^3/uL Red Blood Count 4.09 4.0-5.20 10^6/uL Hemoglobin 12.2 12.2-16.2 g/dL Hematocrit 36.9 36.0-46.0 % Mean Corpuscular Volume 90.2 80.0-100.0 fL Mean Corpuscular Hemoglobin 29.7 28.0-32.0 pg Mean Corpuscular Hemoglobin Concent 33.0 32.0-36.0 g/dL Red Cell Distribution Width 13.8 11.8-14.3 % Platelet Count 121 L 140-450 10^3/uL Mean Platelet Volume 9.2 6.9-10.8 fL Neutrophils (%) (Auto) 76.1 37.0-80.0 % Lymphocytes (%) (Auto) 16.8 10.0-50.0 % Monocytes (%) (Auto) 6.4 0.0-12.0 % Eosinophils (%) (Auto) 0.4 0.0-7.0 % Basophils (%) (Auto) 0.3 0.0-2.0 % Neutrophils # (Auto) 6.0 1.6-8.6 10 ^3/uL Lymphocytes # (Auto) 1.3 0.4-5.4 10 ^3/uL Monocytes # (Auto) 0.5 0-1.3 10 ^3/uL Eosinophils # (Auto) 0 0-0.8 10 ^3/uL Basophils # (Auto) 0 0-0.2 10 ^3/uL Nucleated Red Blood Cells 0.2 % Troponin I High Sensitivity < 3 L < 3 L </=34 ng/L Sodium Level 138 136-145 mmol/L Potassium Level 3.9 3.5-5.1 mmol/L Chloride Level 101 98-107 mmol/L Carbon Dioxide Level 26 20-31 mmol/L Anion Gap 11 5-15 Blood Urea Nitrogen 22 9-23 mg/dL Creatinine 1.29 H 0.550-1.02 mg/dL Glomerular Filtration Rate Calc 45 >90 mL/min BUN/Creatinine Ratio 17.1 10.0-20.0 Serum Glucose 117 H 74-106 mg/dL Lactic Acid Level 3.7 *H 0.4-2.0 mmol/L Calcium Level 10.5 H 8.7-10.4 mg/dL Magnesium Level 1.6 1.6-2.6 mg/dL Total Bilirubin 1.0 0.2-1.0 mg/dL Aspartate Amino Transferase (AST) 19 13-40 U/L Alanine Aminotransferase (ALT) 9 7-40 U/L Alkaline Phosphatase 67 46-116 U/L Total Protein 6.9 5.7-8.2 g/dL Albumin 4.1 3.2-4.8 g/dL Plasma/Serum Blood Alcohol < 3.0 <10 mg/dL Procedure: CT HEAD WITHOUT CONTRAST Study Date and Requested Time: 05/14/2025 08:38 PM History: ALOC Comparison: None Dose: CTDI: 76.15 mGy DLP: 2.24 mGycm Technique: Multiplanar images obtained through the brain without intravenous contrast. Findings: Artifact limits evaluation of the frontal and temporal lobes. Mild diffuse brain atrophy of the visualized brain. Mild chronic small-vessel ischemic changes. Mild prominence of the ventricles, out of proportion Wall Cortical Atrophy. Of the visualized brain, there are no hemorrhages, masses, mass effect, midline shift, herniation or cytotoxic edema following a large vascular territory. No intra-axial or extra-axial fluid collections. The basal cisterns are patent. Limited evaluation of The pituitary gland and sella due to Artifact. The cerebellar tonsils are in normal position. The cerebellum is unremarkable. Limited evaluation of the orbits and globes. The paranasal sinuses and mastoids are clear. There are no worrisome calvarial lesions. Impression: Limited evaluation of the frontal and temporal lobes due to artifact. Otherwise, No evidence of acute intracranial abnormality. Mild prominence of the ventricles, out of proportion with cortical atrophy which may be seen with normal pressure hydrocephalus in the right clinical setting. T RADIOGRAPH Indication: SOB Technique: Single frontal view of the chest was obtained Comparison: XY CHEST PORTABLE on DOS: 04/23/24 FINDINGS: Lines and Tubes: None Lungs: No focal consolidation. Mild interstitial prominence. Pleura: No effusion. No pneumothorax. Cardiomediastinal contours: Unremarkable. Left-sided approach dual lead pacemaker terminating within right atrium and right ventricle. Bones: No acute osseous abnormality. IMPRESSION: Pulmonary vascular congestion. Time of 1ST Reevaluation: 20:14 Reevaluation 1ST: Unchanged Patient Education/Counseling: Other (Patient has dementia) Family Education/Counseling: No Family Present SEPSIS Sepsis Screen Date sepsis recognized/suspect: May 14, 2025 Time Sepsis recognized/suspect: 1904 Recent Procedure: No On Antibiotic Therapy: No Respiratory Rate >20: No Heart Rate >90: No Temp<36 C (96.8 F) or >38.3 C: No SBP <90 or MAP <65 mmHG: No New Acute Mental Status Change: No Is the patient on CPAP, BIPAP,: No Physician Orders Urinalysis (05/14/25 19:18) Chest Portable (05/14/25 19:18) Head Without Contrast (05/14/25 19:18) Drug Screen (05/14/25 19:18) Chlorine Cells Operator (05/14/25 19:18) Blood Culture (05/14/25 19:18) Vital Signs Date Time Temp Pulse Resp B/P (MAP) Pulse Ox O2 Delivery O2 Flow Rate FiO2 05/14/25 20:54 97.9 75 22 95/50 (65) 99 97.9 05/14/25 20:50 75 22 99 Nasal Cannula* 4 36 05/14/25 20:18 98.5 69 72 94/61 (72) 100 98.5 05/14/25 20:16 70 05/14/25 19:08 70 05/14/25 19:04 98.0 70 14 104/63 96 98.0 Laboratory Tests Test 05/14/25 19:59 05/14/25 21:34 Lactic Acid Level 3.7 mmol/L (0.4-2.0) *H White Blood Count 7.8 10^3/uL (4.4-10.8) Departure 1 Departure Time of Disposition: 22:00 Impression: Primary Impression: Metabolic encephalopathy Disposition: ADMITTED INPATIENT Admit to: Med Surg Condition: Guarded Discharged With: Self Critical Care Note Critical Care Time?: No Stability Stability form required: No Heart Score Heart Score: Heart Score Response (Comments) Value History N/A 0 EKG N/A 0 Age N/A 0 Risk Factors N/A 0 Troponin N/A 0 Total 0 I personally scribed for GUICHO PARKER MD ([email or web address]) on 05/14/25 at 20:16. Electronically submitted by [facility] ([email or web address]). I personally scribed for GUICHO PARKER MD ([email or web address]) on 05/14/25 at 22:00. Electronically submitted by [facility] ([email or web address]). GUICHO PARKER MD May 14, 2025 20:16
[2025-05-14 20:38] LABS: Albumin 4.1 g/dL (3.2-4.8); Alkaline Phosphatase 67 U/L (46-116); Anion Gap 11 (5-15); BUN/Creatinine Ratio 17.1 (10.0-20.0); Blood Urea Nitrogen 22 mg/dL (9-23); Carbon Dioxide 26 mmol/L (20-31); Chloride 101 mmol/L (98-107); Potassium 3.9 mmol/L (3.5-5.1); Sodium 138 mmol/L (136-145); Total Protein 6.9 g/dL (5.7-8.2)
[2025-05-14 20:39] LABS: Bilirubin, Total 1.0 mg/dL (0.2-1.0)
[2025-05-14 20:41] LABS: Alanine Aminotransferase 9 U/L (7-40); Calcium 10.5 mg/dL (8.7-10.4); Glucose 117 mg/dL (74-106); Magnesium 1.6 mg/dL (1.6-2.6)
[2025-05-14 20:46] LABS: Lactic Acid w/Reflex 3.7 mmol/L (0.4-2.0)
[2025-05-14 20:50] VITALS: PULSE 75; RESP 22; O2SAT 99
--- NOTE | 2025-05-14 21:17 | DVH ---
Procedure: CT HEAD WITHOUT CONTRAST Study Date and Requested Time: 05/14/2025 08:38 PM History: ALOC Comparison: None Dose: CTDI: 76.15 mGy DLP: 2.24 mGycm Technique: Multiplanar images obtained through the brain without intravenous contrast. Findings: Artifact limits evaluation of the frontal and temporal lobes. Mild diffuse brain atrophy of the visualized brain. Mild chronic small-vessel ischemic changes. Mild prominence of the ventricles, out of proportion Wall Cortical Atrophy. Of the visualized brain, there are no hemorrhages, masses, mass effect, midline shift, herniation or cytotoxic edema following a large vascular territory. No intra-axial or extra-axial fluid collections. The basal cisterns are patent. Limited evaluation of The pituitary gland and sella due to Artifact. The cerebellar tonsils are in normal position. The cerebellum is unremarkable. Limited evaluation of the orbits and globes. The paranasal sinuses and mastoids are clear. There are no worrisome calvarial lesions. Impression: Limited evaluation of the frontal and temporal lobes due to artifact. Otherwise, No evidence of acute intracranial abnormality. Mild prominence of the ventricles, out of proportion with cortical atrophy which may be seen with normal pressure hydrocephalus in the right clinical setting.
[2025-05-14] MEDS ORDERED: MORPHINE SULFATE INJ 2 MG/ml SYRG IV PRN (21:45)
[2025-05-14] MEDS ORDERED: ENOXAPARIN SOD 30 MG/0.3 ML SYRINGE SC SCH (21:45)
[2025-05-14 21:56] LABS: Hematocrit 36.9 % (36.0-46.0); Hemoglobin 12.2 g/dL (12.2-16.2); Mean Corpuscular Hemoglobin 29.7 pg (28.0-32.0); Mean Corpuscular Volume 90.2 fL (80.0-100.0); Nucleated Red Blood Cells % 0.2 %
--- NOTE | 2025-05-14 22:03 | DVHHP2 ---
History of Present Illness HPI 70-year-old female who came to ER via EMS for altered level of consciousness. Per EMS, patient picked up at [facility]. Was seen by caregivers laying on the ground of her room. Considering possible overdose of opiates. Was given 1 mg of Narcan while EN route to the ER. Patient does have history of dementia and no further information could be taken from her at this time with [facility] Meds Active Scripts Methylprednisolone (Medrol Dosepak) 4 Mg Rosendo, 4 MG PO UD, #21 TAB UAD Prov:FATOUMATA DELGADO MD 04/25/24 Reported Medications Diphenhydramine HCl (Ruthann-Dryl) 12.5 Mg/5 Ml Liq, 12.5 MG PO, LIQ 05/15/25 Furosemide (Lasix) 20 Mg Tb, 1 TAB PO DAILY, #90 TAB 1 Refill 05/15/25 Escitalopram Oxalate (Lexapro) 5 Mg Tab, 1 TAB PO DAILY, #30 TAB 2 Refills 05/15/25 Hydrocodone-Acetaminophen (Hydrocodone Bitartrate/AC 10-325 mg) 1 Tab Tab, 1 TAB PO, TAB 05/15/25 Sertraline Hcl (Sertraline Hcl) 25 Mg Tab, 1 TAB PO DAILY, #30 TAB 2 Refills 04/23/24 Alprazolam (Xanax) 0.25 Mg Tb, 1 TAB PO DAILY, #30 TAB 04/23/24 Hydralazine HCl (Hydralazine HCl) 25 Mg Tab, 1 TAB PO DAILY 04/23/24 Quetiapine Fumerate (QUETIAPINE FUMARATE) 25 Mg Tab, 1 TAB PO HS 04/23/24 Montelukast Sodium (MONTELUKAST SODIUM) 10 Mg Tab, 1 TAB PO DAILY 04/23/24 Hctz (Hydrochlorothiazide) 25 Mg Tab, 1 TAB PO DAILY 04/23/24 Past Medical History Patient Family History: Patient reports no known family medical history. Review of Systems Constitutional: No symptom reported Eyes: No symptom reported Pulmonary/Respiratory: Dyspnea Genitourinary: No symptom reported Musculoskeletal: No symptom reported Skin: No symptom reported H&P Exam Vital Signs Vital Signs Date Time Temp Pulse Resp B/P (MAP) Pulse Ox O2 Delivery O2 Flow Rate FiO2 05/14/25 20:54 97.9 75 22 95/50 (65) 99 97.9 General Appeara: Well developed, Well nourished Pulmonary/Respiratory: Normal inspection Cardiovascular/Chest: Normal inspection SEPSIS Sepsis Screen Date sepsis recognized/suspect: May 14, 2025 Time Sepsis recognized/suspect: 2054 Recent Procedure: No On Antibiotic Therapy: No Respiratory Rate >20: Yes Heart Rate >90: No Temp<36 C (96.8 F) or >38.3 C: No SBP <90 or MAP <65 mmHG: No New Acute Mental Status Change: No Is the patient on CPAP, BIPAP,: No Physician Orders Urinalysis (05/14/25 19:18) Chest Portable (05/14/25 19:18) Head Without Contrast (05/14/25 19:18) Drug Screen (05/14/25 19:18) Livestock Breeder (05/14/25 19:18) Blood Culture (05/14/25 19:18) Troponin-I Hs (05/14/25 22:18) Admit (05/14/25 21:42) Code Status (05/14/25 21:42) Enoxaparin Sodium (Lovenox) (05/15/25 10:00) Complete Blood Count (05/15/25 04:00) Comprehensive Metabolic Panel (05/15/25 04:00) Npo (Nothing By Mouth) Diet (05/15/25 Breakfast) Cardiac Diet-2gna,Lofat,Lochol (05/15/25 Breakfast) Condition: Serious (05/14/25 21:42) Lovenox 30mg (05/14/25 21:45) Lovenox 40mg (05/14/25 21:45) Nitroglycerin Sublingual (Ntrostat Subli (05/14/25 21:45) Morphine Sulfate Injection (05/14/25 21:45) Stat Ekg For Chest Pain (05/14/25 21:42) Notify Of Changes From Base (05/14/25 21:42) Conservation Engineer For 24 Hours (05/14/25 21:42) Emergency Dysrhythmia Protocol (05/14/25 21:42) Rhythm Strips Once Every Shift (05/14/25 21:42) Oxygen By Nasal Cannula (05/14/25 21:42) Vital Signs Date Time Temp Pulse Resp B/P (MAP) Pulse Ox O2 Delivery O2 Flow Rate FiO2 05/14/25 20:54 97.9 75 22 95/50 (65) 99 97.9 05/14/25 20:18 98.5 69 72 94/61 (72) 100 98.5 05/14/25 20:16 70 05/14/25 19:08 70 05/14/25 19:04 98.0 70 14 104/63 96 98.0 Laboratory Tests Test 05/14/25 19:59 05/14/25 21:34 Lactic Acid Level 3.7 mmol/L (0.4-2.0) *H White Blood Count 7.8 10^3/uL (4.4-10.8) Labs/Xrays Labs Test 05/14/25 21:34 05/14/25 21:07 05/14/25 19:59 Range/Units White Blood Count 7.8 4.4-10.8 10^3/uL Red Blood Count 4.09 4.0-5.20 10^6/uL Hemoglobin 12.2 12.2-16.2 g/dL Hematocrit 36.9 36.0-46.0 % Mean Corpuscular Volume 90.2 80.0-100.0 fL Mean Corpuscular Hemoglobin 29.7 28.0-32.0 pg Mean Corpuscular Hemoglobin Concent 33.0 32.0-36.0 g/dL Red Cell Distribution Width 13.8 11.8-14.3 % Platelet Count 121 L 140-450 10^3/uL Mean Platelet Volume 9.2 6.9-10.8 fL Neutrophils (%) (Auto) 76.1 37.0-80.0 % Lymphocytes (%) (Auto) 16.8 10.0-50.0 % Monocytes (%) (Auto) 6.4 0.0-12.0 % Eosinophils (%) (Auto) 0.4 0.0-7.0 % Basophils (%) (Auto) 0.3 0.0-2.0 % Neutrophils # (Auto) 6.0 1.6-8.6 10 ^3/uL Lymphocytes # (Auto) 1.3 0.4-5.4 10 ^3/uL Monocytes # (Auto) 0.5 0-1.3 10 ^3/uL Eosinophils # (Auto) 0 0-0.8 10 ^3/uL Basophils # (Auto) 0 0-0.2 10 ^3/uL Nucleated Red Blood Cells 0.2 % Troponin I High Sensitivity < 3 L </=34 ng/L Sodium Level 138 136-145 mmol/L Potassium Level 3.9 3.5-5.1 mmol/L Chloride Level 101 98-107 mmol/L Carbon Dioxide Level 26 20-31 mmol/L Anion Gap 11 5-15 Blood Urea Nitrogen 22 9-23 mg/dL Creatinine 1.29 H 0.550-1.02 mg/dL Glomerular Filtration Rate Calc 45 >90 mL/min BUN/Creatinine Ratio 17.1 10.0-20.0 Serum Glucose 117 H 74-106 mg/dL Lactic Acid Level 3.7 *H 0.4-2.0 mmol/L Calcium Level 10.5 H 8.7-10.4 mg/dL Magnesium Level 1.6 1.6-2.6 mg/dL Total Bilirubin 1.0 0.2-1.0 mg/dL Aspartate Amino Transferase (AST) 19 13-40 U/L Alanine Aminotransferase (ALT) 9 7-40 U/L Alkaline Phosphatase 67 46-116 U/L Total Protein 6.9 5.7-8.2 g/dL Albumin 4.1 3.2-4.8 g/dL Plasma/Serum Blood Alcohol < 3.0 <10 mg/dL Assessment/Plan Primary Diagnosis Metabolic encephalopathy due to PNA suspected PNA (Gram positive/Gram negative) vascular congestion depressive disorder anxiety started on empirical iv abx Plan discussed with: Patient JAVON DELGADILLO May 14, 2025 22:03
[2025-05-14] MEDS: ENOXAPARIN SOD 40 MG/0.4 ML SYRINGE SC ONE (23:00)
[2025-05-15] VITALS (10 sets, daily range): BP systolic 84–140; BP diastolic 50–97; PULSE 57–77; RESP 15–18; TEMP 97.3–100.1; O2SAT 91–100
[2025-05-15] MEDS: SODIUM CHLORIDE 0.9% 1,000 ML IV SCH (00:15)
[2025-05-15] MEDS: ACETAMINOPHEN 500 MG TAB or CAP PO PRN (01:41)
[2025-05-15] MEDS ORDERED: HYDR-4798 PO (02:19)
[2025-05-15] MEDS ORDERED: ESCI5TAB PO (02:22)
[2025-05-15] MEDS ORDERED: [UNRECOGNIZED DRUG - CODE] PO (02:23)
[2025-05-15] MEDS ORDERED: FURO1TAB33 PO (02:23)
[2025-05-15] MEDS: MIDODRINE HCL 10 MG TAB PO SCH (05:37)
[2025-05-15 07:09] LABS: Hematocrit 25.6 % (36.0-46.0); Hemoglobin 8.9 g/dL (12.2-16.2); Mean Corpuscular Hemoglobin 30.5 pg (28.0-32.0); Mean Corpuscular Volume 88.2 fL (80.0-100.0); Nucleated Red Blood Cells % 0.0 %
[2025-05-15 07:52] LABS: Albumin 3.5 g/dL (3.2-4.8); Alkaline Phosphatase 54 U/L (46-116); Anion Gap 10 (5-15); BUN/Creatinine Ratio 20.0 (10.0-20.0); Blood Urea Nitrogen 22 mg/dL (9-23); Calcium 10.0 mg/dL (8.7-10.4); Carbon Dioxide 25 mmol/L (20-31); Chloride 103 mmol/L (98-107); Glucose 89 mg/dL (74-106); Sodium 138 mmol/L (136-145); Total Protein 6.1 g/dL (5.7-8.2)
[2025-05-15 07:53] LABS: Bilirubin, Total 0.6 mg/dL (0.2-1.0)
[2025-05-15 07:54] LABS: Alanine Aminotransferase < 9 U/L (7-40); Potassium 3.1 mmol/L (3.5-5.1)
[2025-05-15] MEDS: ENOXAPARIN SOD 40 MG/0.4 ML SYRINGE SC SCH (08:05)
[2025-05-15 15:03] LABS: Urine Protein, UAD 1+ (Negative); Urine WBC Clumps PRESENT /hpf (None Seen)
[2025-05-15 15:10] LABS: Opiate Scree,Urine Pos (NEGATIVE)
[2025-05-15 15:29] LABS: Amphetamine Screen, Urine Neg (NEGATIVE); Barbiturate Scree,Urine Neg (NEGATIVE); Benzodiazephine Screen, Urine Pos (NEGATIVE); Cannabinoid Screen, Urine Neg (NEGATIVE); Cocaine Screen, Urine Neg (NEGATIVE); Phencyclidine Screen, Urine Neg (NEGATIVE)
[2025-05-15] MEDS: diphenhydrAMINE HCL 50 MG/1 ML VL IV PRN (16:41)
[2025-05-15] MEDS: POTASSIUM CHL 20MEQ/100ML 100 ML IV SCH (18:01)
[2025-05-15] MEDS: ALPRAZolam 0.25 MG TAB PO ONE (21:56)
[2025-05-15] MEDS: SERTRALINE HCL 50 MG TAB PO ONE (21:56)
[2025-05-16] VITALS (7 sets, daily range): BP systolic 90–119; BP diastolic 51–75; PULSE 60–66; RESP 15–17; TEMP 97.3–98.8; O2SAT 95–100
[2025-05-16] MEDS: MONTELUKAST SODIUM 10 MG TAB PO SCH (08:49)
[2025-05-16] MEDS: SERTRALINE HCL 50 MG TAB PO SCH (08:50)
[2025-05-16] MEDS: FUROSEMIDE 20 MG TAB PO SCH (10:00)
[2025-05-16] MEDS: hydroCHLOROthiazide 25 MG TAB PO SCH (10:00)
[2025-05-16] MEDS: ALPRAZolam 0.25 MG TAB PO SCH (11:23)
--- NOTE | 2025-05-16 12:33 | DVHPN2 ---
Progress Note Date Seen: May 15, 2025 Medical Necessity Reason Pt with a Central, PICC or Fol: No Subjective Review of Systems: HEENT:Normal, CVS:Normal, RESPIRATORY:Normal Objective vital signs Vital Sign Date Time Temp Pulse Resp B/P (MAP) Pulse Ox O2 Delivery O2 Flow Rate FiO2 05/16/25 10:00 100/55 05/16/25 09:00 98.8 64 17 97 98.8 05/16/25 08:05 Nasal Cannula* 4 36 Total Intake and Output 05/15/25 05/15/25 05/16/25 15:00 23:00 07:00 Intake Total 1255 ml 1060 ml 1134 ml Output Total 250 ml Balance 1255 ml 1060 ml 884 ml medications Current Medications Medications Dose Ordered Sig/Becca Route Start Time Stop Time Status Last Admin Dose Admin Enoxaparin Sodium 40 mg DAILY SC 05/15/25 10:00 Nitroglycerin 0.4 mg Q5MINP PRN SL 05/14/25 21:45 Morphine Sulfate 2 mg Q30M PRN IV 05/14/25 21:45 Sodium Chloride 1,000 ml @ 75 mls/hr [id number] IV 05/15/25 00:15 05/16/25 04:00 75 MLS/HR Midodrine 10 mg TID@0600,1200,1800 PO 05/15/25 06:00 05/16/25 11:16 10 MG Acetaminophen 500 mg Q6HP PRN PO 05/15/25 01:15 05/15/25 11:23 500 MG Ceftriaxone Sodium 50 ml @ 100 mls/hr DAILY@09 IV 05/15/25 04:00 05/16/25 08:52 100 MLS/HR Diphenhydramine HCl 50 mg Q6HP PRN IV 05/15/25 13:45 05/16/25 05:29 50 MG Alprazolam 0.25 mg DAILY PO 05/16/25 10:00 05/16/25 11:23 0.25 MG Furosemide 20 mg DAILY PO 05/16/25 10:00 Hydrochlorothiazide 25 mg DAILY PO 05/16/25 10:00 Hydralazine HCl 25 mg DAILY PO 05/16/25 10:00 Acetaminophen/ Hydrocodone Bitart 1 tab Q6HPRN PRN PO 05/15/25 21:30 Montelukast Sodium 10 mg DAILY PO 05/16/25 10:00 05/16/25 08:49 10 MG Quetiapine Fumarate 25 mg HS PO 05/15/25 22:00 05/15/25 21:56 25 MG Sertraline HCl 25 mg DAILY PO 05/16/25 10:00 05/16/25 08:50 25 MG Examination: GENERAL:Normal, GENERAL:Abnormal, NECK:Normal, LUNGS:Normal laboratory and microbiology Laboratory Tests 05/15/25 06:22 Test 05/15/25 06:22 Range/Units Serum Glucose 89 74-106 mg/dL Microbiology Date/Time Source Procedure Growth Status 05/15/25 13:22 Urine - [place] Urine Culture - Preliminary Resulted 05/15/25 00:00 Nose MRSA Screen - Final Complete 05/14/25 21:07 Blood Blood Culture - Preliminary Resulted Labs and/or images reviewed: Labs reviewed by me, Image(s) reviewed by me Problem List/Assessment/Plan Problem List/Assessment/Plan Metabolic encephalopathy due to PNA suspected PNA (Gram positive/Gram negative) vascular congestion depressive disorder anxiety PT/OT continue on empirical iv abx Plan discussed with: Patient My Orders My Orders Orders - JAVON DELGADILLO DO Procedure Category Date Status Time Diphenhydramine PHA 05/15/25 In Process Injection (Benadryl 13:45 Insert [place] Catheter LOULOU 05/15/25 Transmitted 13:33 Urine Bacterial ESSENCE 05/15/25 In Process Culture 14:06 JAVON DELGADILLO DO May 16, 2025 12:33
--- NOTE | 2025-05-16 12:38 | DVHPN2 ---
Progress Note Date Seen: May 16, 2025 Medical Necessity Reason Pt with a Central, PICC or Fol: No Subjective Review of Systems: HEENT:Normal, CVS:Normal, RESPIRATORY:Normal Objective vital signs Vital Sign Date Time Temp Pulse Resp B/P (MAP) Pulse Ox O2 Delivery O2 Flow Rate FiO2 05/16/25 10:00 100/55 05/16/25 09:00 98.8 64 17 97 98.8 05/16/25 08:05 Nasal Cannula* 4 36 Total Intake and Output 05/15/25 05/15/25 05/16/25 15:00 23:00 07:00 Intake Total 1255 ml 1060 ml 1134 ml Output Total 250 ml Balance 1255 ml 1060 ml 884 ml medications Current Medications Medications Dose Ordered Sig/Becca Route Start Time Stop Time Status Last Admin Dose Admin Enoxaparin Sodium 40 mg DAILY SC 05/15/25 10:00 Nitroglycerin 0.4 mg Q5MINP PRN SL 05/14/25 21:45 Morphine Sulfate 2 mg Q30M PRN IV 05/14/25 21:45 Sodium Chloride 1,000 ml @ 75 mls/hr [id number] IV 05/15/25 00:15 05/16/25 04:00 75 MLS/HR Midodrine 10 mg TID@0600,1200,1800 PO 05/15/25 06:00 05/16/25 11:16 10 MG Acetaminophen 500 mg Q6HP PRN PO 05/15/25 01:15 05/15/25 11:23 500 MG Ceftriaxone Sodium 50 ml @ 100 mls/hr DAILY@09 IV 05/15/25 04:00 05/16/25 08:52 100 MLS/HR Diphenhydramine HCl 50 mg Q6HP PRN IV 05/15/25 13:45 05/16/25 05:29 50 MG Alprazolam 0.25 mg DAILY PO 05/16/25 10:00 05/16/25 11:23 0.25 MG Furosemide 20 mg DAILY PO 05/16/25 10:00 Hydrochlorothiazide 25 mg DAILY PO 05/16/25 10:00 Hydralazine HCl 25 mg DAILY PO 05/16/25 10:00 Acetaminophen/ Hydrocodone Bitart 1 tab Q6HPRN PRN PO 05/15/25 21:30 Montelukast Sodium 10 mg DAILY PO 05/16/25 10:00 05/16/25 08:49 10 MG Quetiapine Fumarate 25 mg HS PO 05/15/25 22:00 05/15/25 21:56 25 MG Sertraline HCl 25 mg DAILY PO 05/16/25 10:00 05/16/25 08:50 25 MG Examination: GENERAL:Normal, HEENT:Normal, NECK:Normal, LUNGS:Normal laboratory and microbiology Laboratory Tests 05/15/25 06:22 Test 05/15/25 06:22 Range/Units Serum Glucose 89 74-106 mg/dL Microbiology Date/Time Source Procedure Growth Status 05/15/25 13:22 Urine - [place] Urine Culture - Preliminary Resulted 05/15/25 00:00 Nose MRSA Screen - Final Complete 05/14/25 21:07 Blood Blood Culture - Preliminary Resulted Labs and/or images reviewed: Labs reviewed by me, Image(s) reviewed by me Problem List/Assessment/Plan Problem List/Assessment/Plan Metabolic encephalopathy due to PNA suspected PNA (Gram positive/Gram negative) vascular congestion depressive disorder anxiety PT/OT continue on empirical iv abx Plan discussed with: Patient My Orders My Orders Orders - JAVON DELGADILLO DO Procedure Category Date Status Time Diphenhydramine PHA 05/15/25 In Process Injection (Benadryl 13:45 Insert [place] Catheter LOULOU 05/15/25 Transmitted 13:33 Urine Bacterial ESSENCE 05/15/25 In Process Culture 14:06 JAVON DELGADILLO DO May 16, 2025 12:38
[2025-05-16] MEDS: HYDROcodone-ACET 10/325MG TAB PO PRN (13:16)
[2025-05-16] MEDS: POTASSIUM CHL 20 Meq TABLET PO ONE (16:40)
[2025-05-17] VITALS (8 sets, daily range): BP systolic 94–154; BP diastolic 38–78; PULSE 61–75; RESP 16–17; TEMP 97.8–98.5; O2SAT 94–100
--- NOTE | 2025-05-17 13:17 | DVHPN2 ---
Progress Note Date Seen: May 17, 2025 Medical Necessity Reason Pt with a Central, PICC or Fol: No Subjective Review of Systems: HEENT:Normal, CVS:Normal, RESPIRATORY:Normal Objective vital signs Vital Sign Date Time Temp Pulse Resp B/P (MAP) Pulse Ox O2 Delivery O2 Flow Rate FiO2 05/17/25 09:00 98.5 69 17 118/73 (88) 99 98.5 05/17/25 08:10 Nasal Cannula* 3 32 Total Intake and Output 05/16/25 05/16/25 05/17/25 15:00 23:00 07:00 Intake Total 50 ml 150 ml 480 ml Output Total 100 ml 550 ml Balance 50 ml 50 ml -70 ml medications Current Medications Medications Dose Ordered Sig/Becca Route Start Time Stop Time Status Last Admin Dose Admin Enoxaparin Sodium 40 mg DAILY SC 05/15/25 10:00 Nitroglycerin 0.4 mg Q5MINP PRN SL 05/14/25 21:45 Morphine Sulfate 2 mg Q30M PRN IV 05/14/25 21:45 Midodrine 10 mg TID@0600,1200,1800 PO 05/15/25 06:00 05/17/25 11:12 10 MG Acetaminophen 500 mg Q6HP PRN PO 05/15/25 01:15 05/15/25 11:23 500 MG Ceftriaxone Sodium 50 ml @ 100 mls/hr DAILY@09 IV 05/15/25 04:00 05/17/25 08:35 100 MLS/HR Diphenhydramine HCl 50 mg Q6HP PRN IV 05/15/25 13:45 05/17/25 05:35 50 MG Alprazolam 0.25 mg DAILY PO 05/16/25 10:00 05/17/25 10:10 0.25 MG Furosemide 20 mg DAILY PO 05/16/25 10:00 Hydrochlorothiazide 25 mg DAILY PO 05/16/25 10:00 Hydralazine HCl 25 mg DAILY PO 05/16/25 10:00 Acetaminophen/ Hydrocodone Bitart 1 tab Q6HPRN PRN PO 05/15/25 21:30 05/16/25 13:16 1 TAB Montelukast Sodium 10 mg DAILY PO 05/16/25 10:00 05/17/25 08:39 10 MG Quetiapine Fumarate 25 mg HS PO 05/15/25 22:00 05/16/25 21:07 25 MG Sertraline HCl 25 mg DAILY PO 05/16/25 10:00 05/17/25 08:38 25 MG laboratory and microbiology Laboratory Tests 05/15/25 06:22 Test 05/15/25 06:22 Range/Units Serum Glucose 89 74-106 mg/dL Microbiology Date/Time Source Procedure Growth Status 05/15/25 13:22 Urine - [place] Urine Culture - Final Escherichia coli - ESBL Complete 05/15/25 00:00 Nose MRSA Screen - Final Complete 05/14/25 21:07 Blood Blood Culture - Preliminary Resulted Labs and/or images reviewed: Labs reviewed by me, Image(s) reviewed by me Problem List/Assessment/Plan Problem List/Assessment/Plan Metabolic encephalopathy due to PNA suspected PNA (Gram positive/Gram negative) vascular congestion depressive disorder anxiety ESBL UTI PT/OT continue with IV abx, switch to meropenem will need IV abx for 21 days Plan discussed with: Patient JAVON DELGADILLO DO May 17, 2025 13:17
[2025-05-17] MEDS: MEROPENEM 1GM IVPB 50 ML IV SCH (14:17)
--- NOTE | 2025-05-17 17:06 | MEDREC ---
[facility] Intervention Section I [facility] Intervention: Duplication of therapy (Ceftriaxone vs. meropenem. Please d/c ceftriaxone. In addition, please switch meropenem to ertapenem if the patient does not have additional risk factor for pseudomonas. Ertapenem is once daily vs. meropenem Q8-12h depends on renal function => not ideal) [facility] RES[facility] May 17, 2025 17:06
[2025-05-17] MEDS: MORPHINE SULFATE 4 MG/ML SYR/VIAL IV PRN (17:19)
[2025-05-18] VITALS (7 sets, daily range): BP systolic 108–130; BP diastolic 62–83; PULSE 60–69; RESP 15–18; TEMP 97.9–98.2; O2SAT 94–100
--- NOTE | 2025-05-18 08:19 | DVHPN2 ---
Progress Note Date Seen: May 18, 2025 Medical Necessity Reason Pt with a Central, PICC or Fol: No Objective vital signs Vital Sign Date Time Temp Pulse Resp B/P (MAP) Pulse Ox O2 Delivery O2 Flow Rate FiO2 05/18/25 05:00 98.2 65 18 113/65 (81) 100 98.2 05/17/25 20:00 Nasal Cannula* 3 32 Total Intake and Output 05/17/25 05/17/25 05/18/25 15:00 23:00 07:00 Intake Total 404 ml 286 ml 890 ml Output Total 50 ml 1000 ml Balance 404 ml 236 ml -110 ml medications Current Medications Medications Dose Ordered Sig/Becca Route Start Time Stop Time Status Last Admin Dose Admin Enoxaparin Sodium 40 mg DAILY SC 05/15/25 10:00 Nitroglycerin 0.4 mg Q5MINP PRN SL 05/14/25 21:45 Midodrine 10 mg TID@0600,1200,1800 PO 05/15/25 06:00 05/18/25 05:50 10 MG Acetaminophen 500 mg Q6HP PRN PO 05/15/25 01:15 05/17/25 21:09 500 MG Diphenhydramine HCl 50 mg Q6HP PRN IV 05/15/25 13:45 05/17/25 05:35 50 MG Alprazolam 0.25 mg DAILY PO 05/16/25 10:00 05/17/25 10:10 0.25 MG Furosemide 20 mg DAILY PO 05/16/25 10:00 Hydrochlorothiazide 25 mg DAILY PO 05/16/25 10:00 Hydralazine HCl 25 mg DAILY PO 05/16/25 10:00 Acetaminophen/ Hydrocodone Bitart 1 tab Q6HPRN PRN PO 05/15/25 21:30 05/16/25 13:16 1 TAB Montelukast Sodium 10 mg DAILY PO 05/16/25 10:00 05/17/25 08:39 10 MG Quetiapine Fumarate 25 mg HS PO 05/15/25 22:00 05/17/25 21:10 25 MG Sertraline HCl 25 mg DAILY PO 05/16/25 10:00 05/17/25 08:38 25 MG Meropenem 50 ml @ 17 mls/hr Q12HR IV 05/17/25 14:00 05/17/25 21:15 17 MLS/HR Docusate Sodium 100 mg BIDPRN PRN PO 05/17/25 22:00 Morphine Sulfate 2 mg Q30M PRN IV 05/17/25 17:15 05/17/25 17:19 2 MG laboratory and microbiology Laboratory Tests 05/15/25 06:22 Test 05/15/25 06:22 Range/Units Serum Glucose 89 74-106 mg/dL Microbiology Date/Time Source Procedure Growth Status 05/15/25 13:22 Urine - [place] Urine Culture - Final Escherichia coli - ESBL Complete 05/15/25 00:00 Nose MRSA Screen - Final Complete 05/14/25 21:07 Blood Blood Culture - Preliminary Resulted Labs and/or images reviewed: Labs reviewed by me, Image(s) reviewed by me Problem List/Assessment/Plan Problem List/Assessment/Plan Metabolic encephalopathy due to PNA suspected PNA (Gram positive/Gram negative) vascular congestion depressive disorder anxiety ESBL UTI PT/OT continue with IV abx, switch to meropenem will need IV abx for 21 days Plan discussed with: Other (nursing) My Orders My Orders Orders - JAVON DELGADILLO DO Procedure Category Date Status Time Meropenem 1gm Ivpb PHA 05/17/25 In Process (Merrem 1gm/50ml) 14:00 Docusate Sodium PHA 05/17/25 In Process Capsule (Colace 22:00 Electrocardigram EKG 05/17/25 Logged 17:00 Morphine Sulfate PHA 05/17/25 In Process Injection 17:15 * Picc Line Consult CONS 05/18/25 Transmitted 08:16 * Candy Forming Machine Operator CONS 05/18/25 Transmitted Consult JAVON DELGADILLO DO May 18, 2025 08:19
--- NOTE | 2025-05-18 09:46 | ECG ---
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
[2025-05-18] MEDS: AZITHROMYCIN 500MG/250ML 250 ML IV SCH (12:34)
[2025-05-18] MEDS: DOCUSATE SOD 100 MG CAP PO PRN (16:12)
[2025-05-18] MEDS: NITROGLYCERIN 0.4 MG SL TAB SL PRN (19:50)
--- NOTE | 2025-05-20 07:19 | ECG ---
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
--- NOTE | 2025-05-22 22:02 | DVHDS2 ---
Discharge Summary Date of Admission May 14, 2025 at 21:42 Date of Discharge: May 18, 2025 Labs/Diagnostic Data: Laboratory Results Test 05/15/25 14:40 05/15/25 13:22 05/15/25 06:22 05/14/25 21:07 Lactic Acid Level 1.1 mmol/L (0.4-2.0) Urine Color Light-orange (Yellow) Urine Clarity Cloudy (Clear) Urine pH 5.5 (5.0-9.0) Urine Specific [place] 1.016 (1.001-1.035) Urine Protein 1+ (Negative) Urine Ketones 1+ (Negative) Urine Blood 2+ /uL (Negative) Urine Nitrite 1+ (Negative) Urine Bilirubin Negative (Negative) Urine Urobilinogen Normal mg/dL (Negative) Urine Leukocyte Esterase 2+ /uL (Negative) Urine RBC 55 /hpf (0 - 4) Urine WBC Clumps Present /hpf (None Seen) Urine Microscopic WBC 1637 /HPF (0-5) Urine Squamous Epithelial Cells Few /hpf (<5) Urine Bacteria Many /hpf (None Seen) Urine Glucose Normal mg/dL (Normal) Urine Opiates Screen Pos (NEGATIVE) Urine Fentanyl Screen Neg (NEGATIVE) Urine Barbiturates Screen Neg (NEGATIVE) Urine Phencyclidine Screen Neg (NEGATIVE) Urine Amphetamines Screen Neg (NEGATIVE) Urine Benzodiazepines Screen Pos (NEGATIVE) Urine Cocaine Screen Neg (NEGATIVE) Urine Cannabinoids Screen Neg (NEGATIVE) White Blood Count 6.7 10^3/uL (4.4-10.8) Red Blood Count 2.91 10^6/uL (4.0-5.20) Hemoglobin 8.9 g/dL (12.2-16.2) Hematocrit 25.6 % (36.0-46.0) Mean Corpuscular Volume 88.2 fL (80.0-100.0) Mean Corpuscular Hemoglobin 30.5 pg (28.0-32.0) Mean Corpuscular Hemoglobin Concent 34.5 g/dL (32.0-36.0) Red Cell Distribution Width 13.4 % (11.8-14.3) Platelet Count 87 10^3/uL (140-450) Mean Platelet Volume 9.1 fL (6.9-10.8) Neutrophils (%) (Auto) 79.9 % (37.0-80.0) Lymphocytes (%) (Auto) 11.7 % (10.0-50.0) Monocytes (%) (Auto) 7.2 % (0.0-12.0) Eosinophils (%) (Auto) 0.9 % (0.0-7.0) Basophils (%) (Auto) 0.3 % (0.0-2.0) Neutrophils # (Auto) 5.4 10 ^3/uL (1.6-8.6) Lymphocytes # (Auto) 0.8 10 ^3/uL (0.4-5.4) Monocytes # (Auto) 0.5 10 ^3/uL (0-1.3) Eosinophils # (Auto) 0.1 10 ^3/uL (0-0.8) Basophils # (Auto) 0 10 ^3/uL (0-0.2) Nucleated Red Blood Cells 0.0 % Sodium Level 138 mmol/L (136-145) Potassium Level 3.1 mmol/L (3.5-5.1) Chloride Level 103 mmol/L (98-107) Carbon Dioxide Level 25 mmol/L (20-31) Anion Gap 10 (5-15) Blood Urea Nitrogen 22 mg/dL (9-23) Creatinine 1.10 mg/dL (0.550-1.02) Glomerular Filtration Rate Calc 54 mL/min (>90) BUN/Creatinine Ratio 20.0 (10.0-20.0) Serum Glucose 89 mg/dL (74-106) Calcium Level 10.0 mg/dL (8.7-10.4) Total Bilirubin 0.6 mg/dL (0.2-1.0) Aspartate Amino Transferase (AST) 13 U/L (13-40) Alanine Aminotransferase (ALT) < 9 U/L (7-40) Alkaline Phosphatase 54 U/L (46-116) Total Protein 6.1 g/dL (5.7-8.2) Albumin 3.5 g/dL (3.2-4.8) Troponin I High Sensitivity < 3 ng/L (</=34) Test 05/14/25 19:59 Magnesium Level 1.6 mg/dL (1.6-2.6) Plasma/Serum Blood Alcohol < 3.0 mg/dL (<10) Other Laboratory Tests 05/15/25 06:22 Brief Hx & Hospital Course: Metabolic encephalopathy due to PNA suspected PNA (Gram positive/Gram negative) vascular congestion depressive disorder anxiety ESBL UTI PT/OT continue with IV abx, switch to meropenem will need IV abx for 21 days Condition at Discharge: Fair Final Diagnosis/Problems List UTI Discharge Disposition: [facility] Facility Discharge Instruct/Medications Diet: Cardiac 2g Na,low cholest Activity: Bed rest Scheduled Alprazolam (Xanax), 1 TAB PO DAILY, (Reported) Escitalopram Oxalate (Lexapro), 1 TAB PO DAILY, (Reported) Furosemide (Lasix), 1 TAB PO DAILY, (Reported) Hctz (Hydrochlorothiazide), 1 TAB PO DAILY, (Reported) Hydralazine HCl (Hydralazine HCl), 1 TAB PO DAILY, (Reported) Methylprednisolone (Medrol Dosepak), 4 MG PO UD Montelukast Sodium (Montelukast Sodium), 1 TAB PO DAILY, (Reported) Quetiapine Fumerate (Quetiapine Fumarate), 1 TAB PO HS, (Reported) Sertraline Hcl (Sertraline Hcl), 1 TAB PO DAILY, (Reported) Miscellaneous Medications Diphenhydramine HCl (Ruthann-Dryl), 12.5 MG PO, (Reported) Hydrocodone-Acetaminophen (Hydrocodone Bitartrate/AC 10-325 mg), 1 TAB PO, (Reported) Discharge Statement: "Patient was advised to return to the ER or call 911 if any headaches, dizziness, shortness of breath, chest pain, abdominal pain, bleeding, fevers, or worsening of medical condition. Patient was counseled about treatment plan, medications, possible side effects, patientverbalized understanding. All questions were answered to the best of my ability. This discharge took greater then 30 minutes in planning, reviewing documentation, counseling the patient, and discussing with other team members." ASSESSMENT ASSESSMENT Assessment UTI DELGADILLOJAVON Sweeney Yesenia LOUIE May 22, 2025 22:02
== END 2025-05-18 19:15 | DRG 177 ==
LOC: EDUNIT# 18:59 → EDBD 18:59 → ER 18:59 → OVERFLOW 21:42 → TELE-WESTW 23:17
PROVIDERS: ADMIT Internal Medicine; ATTEND Internal Medicine
PROC: 05HC33Z Insertion of Infusion Device into Left Basilic Vein, Percutaneous Approach (ICD-10-PCS; principal; 2025-05-18)
PROC: B54NZZA Ultrasonography of Left Upper Extremity Veins, Guidance (ICD-10-PCS; 2025-05-18)
DX: J15.69 Pneumonia due to other Gram-negative bacteria (principal); G93.41 Metabolic encephalopathy; N39.0 Urinary tract infection, site not specified; J15.9 Unspecified bacterial pneumonia; I50.9 Heart failure, unspecified; F32.A Depression, unspecified; F03.90 Unspecified dementia, unspecified severity, without behavioral disturbance, psychotic disturbance, mood disturbance, and anxiety; Z16.12 Extended spectrum beta lactamase (ESBL) resistance; F41.9 Anxiety disorder, unspecified
CPT/HCPCS: 36415; 70450; 71045; 80053; 80307; 80320; 81001; 83605; 83735; 84484; 85025; 87040; 87077; 87081; 87086; 87088; 87186; 93005; G0378; J2185; J3480